=== PATIENT | male | born 1960 | race Caucasian/White ===

== ENCOUNTER → 2018-08-14 | Outpatient (CLI) | payer OTHER ==
--- NOTE | 2018-08-14 11:46 | KCIC ---
MR of the left knee Indication: Left knee pain medially, swelling. Comparison: None are available. Technique: The standard multiplanar sequences are obtained. FINDINGS: Artifact: No significant image degradation. Medial meniscus: Tear at the body segment, with a large radial morphology. Lateral meniscus: Intact. Anterior cruciate ligament: Intact Posterior cruciate ligament: Intact Medial collateral ligament: Proximal sprain. No rupture. Lateral structures: * Iliotibial band: Intact. * Lateral collateral ligament: Intact. * Biceps femoris tendon: Intact * Popliteus tendon attachment: Intact Extensive mechanism: * Patellar tendon: Intact * Quadriceps tendon: Intact * Retinacular structures: Intact Fluid: Moderate joint effusion. Trace Bueno's cyst. Intra-articular bodies: None visualized Joint compartments * patellofemoral joint: Severe chondromalacia with subchondral bone exposure. * medial compartment: Severe chondral loss with subchondral bone exposure to medial femoral condyle. Intense acute subchondral marrow edema. Minimal subchondral hypointense band. * lateral compartment: Small full-thickness chondral defect at the medial aspect of the lateral tibial plateau measures 4 mm x 3 mm. Mild chondromalacia at the lateral aspect of the joint. Bones: No significant lesion or acute fracture. Soft tissue: Unremarkable Impression: 1. Medial meniscal tear. 2. Acute subchondral marrow edema at the medial femoral condyle, likely due to nondisplaced stress fracture. Early osteonecrosis could result in a similar appearance. 3. Primary osteoarthritis. Small full-thickness chondral defect of the lateral tibial plateau. 4. Medial collateral ligament sprain. Electronically signed by: Marques De Anda MD (08/14/2018 11:43 AM) [facility]
== END | disposition home or self-care (01) ==
LOC: KCIC MRI 08:19
PROVIDERS: ATTEND Physician Assistant Surgical
DX: S83.242A Other tear of medial meniscus, current injury, left knee, initial encounter (principal); S83.412A Sprain of medial collateral ligament of left knee, initial encounter; M17.12 Unilateral primary osteoarthritis, left knee; M25.462 Effusion, left knee; M22.42 Chondromalacia patellae, left knee; R60.0 Localized edema; X58.XXXA Exposure to other specified factors, initial encounter; Y93.89 Activity, other specified; Y92.89 Other specified places as the place of occurrence of the external cause; Y99.8 Other external cause status
CPT/HCPCS: 73721